=== PATIENT | female | born 1990 | race Two or more races ===

== ENCOUNTER 2017-07-14 12:42 | Emergency (ER) | payer SELFPAY ==
[~2017-07-14] VITALS: Ht 167.6 cm; Wt 65.8 kg
[2017-07-14 12:54] VITALS: BP 119/56
[2017-07-14] MEDS ORDERED: AMOX500C PO (14:07)
--- NOTE | 2017-07-14 14:07 | PHYS DOC ---
Past Medical History Past Medical History: No Pertinent History Past Surgical History: No Surgical History Alcohol Use: Rarely Drug Use: None Adult General Chief Complaint Chief Complaint: MULTIPLE COMPLAINTS [facility] HPI Patient is a 26 year old female presents to the emergency stating that she's had a cough congestion and sore throat for the last 6 days. She is here with HER -2 younger children with the same symptoms. They state that they've just returned from [place]. She denies any fever, chills or any nausea or vomiting. She's been taken [id number] medications with no relief. Review of Systems Review of Systems Constitutional: Denies fever or chills [] Eyes: Denies change in visual acuity, redness, or eye pain [] HENT: Complaining of nasal congestion and sore throat Respiratory: Cough denies any shortness of breath Cardiovascular: No additional information not addressed in HPI [] GI: Denies abdominal pain, nausea, vomiting, bloody stools or diarrhea [] : Denies dysuria or hematuria [] Musculoskeletal: Denies back pain or joint pain [] Integument: Denies rash or skin lesions [] Neurologic: Denies headache, focal weakness or sensory changes [] Endocrine: Denies polyuria or polydipsia [] Allergies Allergies Allergies Coded Allergies Type Severity Reaction Last Updated Verified No Known Drug Allergies 07/14/17 No Physical Exam Physical Exam Constitutional: Well developed, well nourished, no acute distress, non-toxic appearance. [] HENT: Normocephalic, atraumatic, bilateral external ears normal, oropharynx moist, no oral exudates, nose normal. Bilateral tympanic membranes appear to be normal. Throat with postnasal drip noted. No exudate no erythematous noted. Eyes: PERRLA, EOMI, conjunctiva normal, no discharge. [] Neck: Normal range of motion, no tenderness, supple, no stridor. [] Cardiovascular:Heart rate regular rhythm, no murmur [] Lungs & Thorax: Bilateral breath sounds clear to auscultation [] Skin: Warm, dry, no erythema, no rash. [] Back: No tenderness, no CVA tenderness. [] Extremities: No tenderness, no cyanosis, no clubbing, ROM intact, no edema. [] Neurologic: Alert and oriented X 3, normal motor function, normal sensory function, no focal deficits noted. [] Psychologic: Affect normal, judgement normal, mood normal. [] Current Patient Data Vital Signs Vital Signs Date Time Temp Pulse Resp B/P (MAP) Pulse Ox O2 Delivery O2 Flow Rate FiO2 07/14/17 12:54 97.7 95 20 98 Room Air 97.7 EKG EKG [] Radiology/Procedures Radiology/Procedures [] Course & Med Decision Making Course & Med Decision Making Pertinent Labs and Imaging studies reviewed. (See chart for details) Patient will be discharged home in stable condition. Recommended Zyrtec or Claritin [id number]. Also recommended amoxicillin prescription. Signs symptoms to return back to emergency prior has been provided. Recommended plenty of fluids. Tylenol or ibuprofen for fever chills or generalized body aches and discomfort. Patient will be discharged home in stable condition. All questions and concerns been answered at patient's bedside. [] Dragon Disclaimer Dragon Disclaimer This electronic medical record was generated, in whole or in part, using a voice recognition dictation system. Departure Departure Impression: Primary Impression: Sinusitis Disposition: 01 HOME, SELF-CARE Condition: STABLE Referrals: NO PCP (PCP) Patient Instructions: Sinusitis, [id number] Additional Instructions: Activity as tolerated. Tylenol or ibuprofen for fever chills or generalized body aches and discomfort. Zyrtec or Claritin [id number] may also help with seasonal allergies. Drink plenty of fluids. Follow-up to primary care physician in the next week. Return back to emergency prior signs symptoms of become worse. 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
== END 2017-07-14 14:10 | disposition home or self-care (01) ==
LOC: ER 12:42
DX: J32.9 Chronic sinusitis, unspecified (principal)
CPT/HCPCS: 99283